=== PATIENT | female | born 1990 | race Caucasian/White ===

== ENCOUNTER 2022-12-24 22:00 | Inpatient (IN) | payer MEDICAID ==
[2022-12-24] MEDS ORDERED: Misoprostol 25 MCG (1/4 of 100 MCG) Tab VAG PRN ×4 (23:14→23:27)
[2022-12-24] MEDS ORDERED: Terbutaline 1 MG/ML SDV SUBCUT PRN ×2 (23:14→23:27)
[2022-12-24] MEDS ORDERED: Oxytocin/0.9 % Sodium Chloride 30 UNIT/500 ML BAG IV SCH ×3 (23:15→23:30)
[2022-12-24] MEDS ORDERED: Carboprost Tromethamine 250 MCG/1 mL Vial IM PRN (23:27)
[2022-12-24] MEDS ORDERED: Tranexamic Acid IN NACL,ISO-OS 1,000 MG in Premix Bag 1 BAG IV PRN ×2 (23:27)
[2022-12-24] MEDS ORDERED: Sodium Chloride 0.9% 2.5 ML Syringe FLUSH PRN (23:27)
[2022-12-24] MEDS ORDERED: Methylergonovine 0.2 MG/1 ML Amp IM PRN (23:27)
[2022-12-24] MEDS ORDERED: Misoprostol 200 MCG Tab PO PRN (23:27)
[2022-12-24] MEDS ORDERED: Ondansetron 4 MG/2 ML SDV IVPUSH PRN (23:27)
[2022-12-24] MEDS ORDERED: Water For Irrigation,Sterile 1,000 ML Container IRR PRN (23:27)
[2022-12-24] MEDS ORDERED: Sodium Chloride 0.9% 10 ML Syringe FLUSH PRN (23:27)
[2022-12-24] MEDS ORDERED: Sodium Chloride 0.9% 20 ML SDV IV PRN (23:27)
[2022-12-24] MEDS ORDERED: Lidocaine 1% 50 ML MDV INJECT PRN (23:27)
[2022-12-24] MEDS ORDERED: Lactated Ringers 1,000 ML IV SCH (23:30)
[2022-12-25] MEDS ORDERED: Misoprostol 25 MCG (1/4 of 100 MCG) Tab PO SCH
[2022-12-25 00:19] LABS: HEMATOCRIT 34.2 % (37.0-47.0); HEMOGLOBIN 11.5 g/dL (12.0-16.0); IMMATURE GRAN ABSOLUTE AUTO 0.08 K/uL (0.00-0.05); IMMATURE GRAN PERCENT AUTO 0.7 % (0.0-0.4); MEAN CORPUSCULAR HGB CONC 33.6 g/dL (32.0-36.0); MEAN CORPUSCULAR VOLUME 80.3 fL (83.0-99.0); MEAN PLATELET VOLUME 10.4 fL (9.4-12.3); PLATELET COUNT,PLT 318 K/uL (150-400); RED BLOOD CELL COUNT 4.26 M/uL (4.10-5.30); WHITE BLOOD CELL COUNT,WBC 12.28 K/uL (3.9-11.3)
[2022-12-25] MEDS ORDERED: ePHEDrine 50 MG/ML SDV IVPUSH PRN ×2 (00:55)
[2022-12-25] MEDS ORDERED: Phenylephrine HCl 0.5 MG/5 ML AMP IVPUSH PRN (00:55)
[2022-12-25] MEDS ORDERED: Ropivacaine HCl/PF 400 MG in Premix Bag 1 BAG EPIDUR SCH (01:00)
[2022-12-25] MEDS ORDERED: Morphine 2 MG/ML SYRINGE IVPUSH ONE (04:27)
[2022-12-25] MEDS ORDERED: Benzocaine/Menthol 20%-0.5% Spray 78 GM Cannister TOP PRN (05:00)
[2022-12-25] MEDS ORDERED: Docusate Sodium 100 MG Cap PO PRN (05:00)
[2022-12-25] MEDS ORDERED: Ibuprofen 400 MG Tab PO PRN (05:00)
[2022-12-25] MEDS ORDERED: Witch Hazel Medicated Pads 40/Jar TOP PRN (05:00)
[2022-12-25] MEDS ORDERED: Acetaminophen 500 MG Tab PO PRN ×2 (05:00)
[2022-12-25] MEDS ORDERED: Bisacodyl 10 MG Supp RECTAL PRN (05:00)
[2022-12-25] MEDS ORDERED: Lanolin 100% Cream 7 GM Tube TOP PRN (05:00)
[2022-12-25] MEDS: Ibuprofen 800 MG Tab PO PRN ×2 (10:46→17:30)
[2022-12-26] MEDS ORDERED: Calcium Carbonate 500 MG Tab.Chew PO ONE (01:10)
[2022-12-26 06:03] LABS: HEMATOCRIT 30.8 % (37.0-47.0); HEMOGLOBIN 10.1 g/dL (12.0-16.0)
[2022-12-26] MEDS: Ibuprofen 800 MG Tab PO PRN (08:54)
== END 2022-12-26 14:35 | disposition home or self-care (01) | DRG 807 ==
LOC: MW.OB 22:00 → OBSVTOIN 12-25 04:22 → MW.OB 12-25 13:15
PROVIDERS: ADMIT Obstetrics & Gynecology Obstetrics; ATTEND Obstetrics & Gynecology Obstetrics
PROC: 10E0XZZ Delivery of Products of Conception, External Approach (ICD-10-PCS; principal; 2022-12-25)
PROC: 3E0P7VZ Introduction of Hormone into Female Reproductive, Via Natural or Artificial Opening (ICD-10-PCS; 2022-12-25)
DX: O69.81X0 Labor and delivery complicated by cord around neck, without compression, not applicable or unspecified (principal); Z37.0 Single live birth; Z3A.39 39 weeks gestation of pregnancy
CPT/HCPCS: 36415; 59025; 59409; 85014; 85018; 85027; 86592; 86850; 86900; 86901; A9270-GY; J2270; J2590

== ENCOUNTER 2024-01-16 22:57 | Emergency (ER) | payer MEDICAID ==
[2024-01-16] MEDS ORDERED: Sodium Chloride 0.9% 10 ML Syringe FLUSH PRN (23:25)
[2024-01-16] MEDS: Acetaminophen 325 MG/10.15 ML PO ONE (23:33)
[2024-01-16 23:45] LABS: BASOPHILS ABSOLUTE AUTO 0.06 K/uL (0.00-0.20); BASOPHILS PERCENT AUTO 0.5 % (0.0-1.0); EOSINOPHILS ABSOLUTE AUTO 0.19 K/uL (0.00-0.45); EOSINOPHILS PERCENT AUTO 1.4 % (0.0-6.0); HEMATOCRIT 43.9 % (37.0-47.0); HEMOGLOBIN 13.7 g/dL (12.0-16.0); IMMATURE GRAN ABSOLUTE AUTO 0.05 K/uL (0.00-0.05); IMMATURE GRAN PERCENT AUTO 0.4 % (0.0-0.4); LYMPHOCYTES PERCENT AUTO 25.8 % (24.0-44.0); MEAN CORPUSCULAR HEMOGLOBIN 25.9 pg (28.0-32.0); MEAN CORPUSCULAR HGB CONC 31.2 g/dL (32.0-36.0); MEAN PLATELET VOLUME 9.1 fL (9.4-12.3); MONOCYTES ABSOLUTE AUTO 0.81 K/uL (0.00-0.80); MONOCYTES PERCENT AUTO 6.1 % (0.0-8.0); NEUTROPHILS ABSOLUTE AUTO 8.68 K/uL (1.80-7.70); NEUTROPHILS PERCENT AUTO 65.8 % (41.0-71.0); PLATELET COUNT,PLT 289 K/uL (150-400); RED BLOOD CELL COUNT 5.29 M/uL (4.10-5.30); WHITE BLOOD CELL COUNT,WBC 13.19 K/uL (3.9-11.3)
[2024-01-16] MEDS: Dexamethasone 4 MG/ML SDV IVPUSH ONE (23:45)
[2024-01-16] MEDS: Orphenadrine 60 MG/2 ML Inj IM ONE (23:49)
[2024-01-17 00:08] LABS: A/G RATIO 0.9 (0.9-1.6); ALBUMIN 3.3 g/dL (3.4-5.0); BILIRUBIN TOTAL 0.5 mg/dL (0.2-1.0); C-REACTIVE PROTEIN 6.2 mg/dL (<0.3); CALCIUM 8.6 mg/dL (8.5-10.1); CARBON DIOXIDE,CO2 29.2 mmol/L (21.0-32.0); CREATININE 0.7 mg/dL (0.6-1.0); EST CRCL DRUG DOSING (CG) 96.86 mL/min; POTASSIUM,K 3.8 mmol/L (3.5-5.1); PROTEIN TOTAL,TP 7.1 g/dL (6.4-8.2)
[2024-01-17] MEDS: Iopamidol 755 Mg/ML 100 ML Bottle IVPUSH ONE (00:31)
== END 2024-01-17 02:09 | disposition home or self-care (01) ==
LOC: MW.ED 22:57
DX: S16.1XXA Strain of muscle, fascia and tendon at neck level, initial encounter (principal); R42 Dizziness and giddiness; R03.0 Elevated blood-pressure reading, without diagnosis of hypertension; Z98.84 Bariatric surgery status; Z92.29 Personal history of other drug therapy; Z79.899 Other long term (current) drug therapy; X58.XXXA Exposure to other specified factors, initial encounter
CPT/HCPCS: 36415; 70498; 72125; 80053; 81025; 85025; 85652; 86140; 96372; 96374; 99284; A9270; J1100; J2360; Q9967; 99283